=== PATIENT | male | born 1995 | race Caucasian/White ===

== ENCOUNTER 2016-12-07 13:40 | Emergency (ER) | payer OTHER | END 2016-12-07 16:00 | disposition home or self-care (01) | LOC: ER1 13:40 | DX: S60.221A Contusion of right hand, initial encounter (principal); Z88.0 Allergy status to penicillin; F17.290 Nicotine dependence, other tobacco product, uncomplicated; W20.8XXA Other cause of strike by thrown, projected or falling object, initial encounter; Y92.009 Unspecified place in unspecified non-institutional (private) residence as the place of occurrence of the external cause | CPT/HCPCS: 73110; 73130; 99283 ==